=== PATIENT | female | born 1990 | race Hispanic/Latino ===

== ENCOUNTER 2016-12-09 14:04 | Emergency (ER) | payer OTHER, MEDICAID ==
[2016-12-09 14:42] VITALS: RESP 18; TEMP 97.8; O2SAT 100
[2016-12-09 14:43] VITALS: BP 101/62; PULSE 82
--- NOTE | 2016-12-09 16:15 | ED PDOC ---
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 Patient reports that she was lifting a child when she felt the acute onset of a tight, sharp pain in her left lower back. She states that she has never had similar pain in the past, and that she took 200 mg Ibuprofen, but that it did not help relieve her symptoms. She denies any numbness, tingling, bladder incontinence, or bowel incontinence. Past Medical History Reviewed: Historical Data, Nursing Documentation, Vital Signs Vital Signs: Last Vital Signs Temp 97.8 F 12/09/16 14:38 Pulse 82 12/09/16 14:38 Resp 18 12/09/16 14:38 BP 101/62 12/09/16 14:38 Pulse Ox 100 12/09/16 14:38 - Family History Family History: States: Diabetes (second degree relatives) - Home Medications Home Medications: Ambulatory Orders Medication Instructions Recorded Acetaminophen with Codeine 2 tab PO Q4H PRN #22 tab 07/09/14 [Tylenol with Codeine No. 3 300 mg-30 mg] Ibuprofen 600 mg PO Q8H PRN #60 tab 07/09/14 Ibuprofen [Motrin] 1 tab PO Q8 PRN #30 tab 11/01/15 Loratadine [Claritin] 1 tab PO DAILY #30 tab 11/01/15 Oseltamivir Phosphate [Tamiflu] 1 tab PO BID #10 capsule 11/01/15 Ibuprofen [Motrin] 600 mg PO TID PRN #30 tab 07/31/16 Nitrofurantoin Macrocrystals 100 mg PO BID #14 cap 07/31/16 [Macrobid] Cyclobenzaprine [Cyclobenzaprine 10 mg PO Q8H PRN #12 tab 12/09/16 HCl] Ibuprofen [Motrin Tab] 800 mg PO Q6H PRN #20 tab 12/09/16 - Allergies Allergies/Adverse Reactions: Allergies Allergy/AdvReac Type Severity Reaction Status Date / Time No Known Allergies Allergy Verified 07/09/14 11:09 Review of Systems Genitourinary Female: Negative for: Incontinence (denies bladder or bowel incontinence) Musculoskeletal: Positive for: Back Pain (tight, sharp pain in left lower back) Neurological: Negative for: Numbness (denies numbness or tingling) Physical Exam - Reviewed Nursing Documentation Reviewed: Yes Vital Signs Reviewed: Yes - Physical Exam Appears: Positive for: Non-toxic, No Acute Distress Head Exam: Positive for: ATRAUMATIC, NORMOCEPHALIC Skin: Positive for: Normal Color, Warm Eye Exam: Positive for: Normal appearance, EOMI, PERRL Cardiovascular/Chest: Positive for: Regular Rate, Rhythm. Negative for: Murmur Respiratory: Positive for: Normal Breath Sounds. Negative for: Wheezing Back: Positive for: Muscle Spasm, Other ((+) left straight leg raise. No midline tenderness.). Negative for: Vertebral Tenderness, Decreased ROM Neurologic/Psych: Positive for: Alert, Oriented - ECG O2 Sat by Pulse Oximetry: 100 (RA) Pulse Ox Interpretation: Normal Medical Decision Making Medical Decision Making: Impression: Sciatica Plan: * Flexeril 10 mg PO * Ibuprofen 600 mg PO * Urine Pt laughing and taking on phone throughout visit. Scribe Attestation: Documented by Ratna Munoz, acting as a scribe for Stella Fritz PA-C. Provider Scribe Attestation: All medical record entries made by the Scribe were at my direction and personally dictated by me. I have reviewed the chart and agree that the record accurately reflects my personal performance of the history, physical exam, medical decision making, and the department course for this patient. I have also personally directed, reviewed, and agree with the discharge instructions and disposition. Disposition - Clinical Impression Clinical Impression: Back pain - Patient ED Disposition Is Patient to be Admitted: No Counseled Patient/Family Regarding: Diagnosis, Need For Followup, Rx Given - Disposition Referrals: [facility] [Outside] Disposition: Routine/Home Disposition Time: 16:27 Condition: GOOD Prescriptions: Cyclobenzaprine [Cyclobenzaprine HCl] 10 mg PO Q8H PRN #12 tab PRN Reason: Muscle Spasm Ibuprofen [Motrin Tab] 800 mg PO Q6H PRN #20 tab PRN Reason: Pain Instructions: Sciatica (ED)
== END 2016-12-09 16:59 | disposition home or self-care (01) ==
LOC: H.ER 14:04
DX: M54.9 Dorsalgia, unspecified (principal)

== ENCOUNTER 2017-02-08 09:33 | Emergency (ER) | payer MEDICAID, OTHER ==
[2017-02-08 09:54] VITALS: O2SAT 100
[2017-02-08 09:56] VITALS: BMI 25.5
--- NOTE | 2017-02-08 10:26 | ED PDOC ---
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 denies: Fever, Sputum, Neck Pain, Sinus Drainage, Nasal Congestion, Nausea, Vomiting, Diarrhea Ear Symptoms: Bilateral: None Severity: Mild Additional History Per: Patient Additional Complaint(s): c/o sore throat with bodyaches for a few days Past Medical History Reviewed: Historical Data, Nursing Documentation, Vital Signs Vital Signs: Last Vital Signs Temp 98.7 F 02/08/17 09:53 Pulse 76 02/08/17 09:53 Resp 16 02/08/17 09:53 BP 150/80 02/08/17 09:53 Pulse Ox 100 02/08/17 10:27 - Medical History PMH: No Chronic Diseases Denies: Chronic Kidney Disease - Family History Family History: States: Diabetes (second degree relatives) - Living Arrangements Living Arrangements: With Family - Social History Current smoker - smoking cessation education provided: No - Home Medications Home Medications: Ambulatory Orders Medication Instructions Recorded Acetaminophen with Codeine 2 tab PO Q4H PRN #22 tab 07/09/14 [Tylenol with Codeine No. 3 300 mg-30 mg] Ibuprofen 600 mg PO Q8H PRN #60 tab 07/09/14 Ibuprofen [Motrin] 1 tab PO Q8 PRN #30 tab 11/01/15 Loratadine [Claritin] 1 tab PO DAILY #30 tab 11/01/15 Oseltamivir Phosphate [Tamiflu] 1 tab PO BID #10 capsule 11/01/15 Ibuprofen [Motrin] 600 mg PO TID PRN #30 tab 07/31/16 Nitrofurantoin Macrocrystals 100 mg PO BID #14 cap 07/31/16 [Macrobid] Cyclobenzaprine [Cyclobenzaprine 10 mg PO Q8H PRN #12 tab 12/09/16 HCl] Ibuprofen [Motrin Tab] 800 mg PO Q6H PRN #20 tab 12/09/16 Amoxicillin 500 mg PO TID 10 Days 02/08/17 - Allergies Allergies/Adverse Reactions: Allergies Allergy/AdvReac Type Severity Reaction Status Date / Time No Known Allergies Allergy Verified 07/09/14 11:09 Review of Systems ROS Statement: Except As Marked, All Systems Reviewed And Found Negative Constitutional: Negative for: Fever, Chills ENT: Positive for: Throat Pain. Negative for: Nose Congestion Cardiovascular: Negative for: Chest Pain, Palpitations Respiratory: Positive for: Cough. Negative for: Shortness of Breath Gastrointestinal: Negative for: Nausea, Vomiting, Abdominal Pain Genitourinary Female: Negative for: Dysuria Musculoskeletal: Negative for: Neck Pain Skin: Negative for: Rash Neurological: Negative for: Weakness, Numbness Physical Exam - Reviewed Nursing Documentation Reviewed: Yes Vital Signs Reviewed: Yes - Physical Exam Appears: Positive for: Uncomfortable Head Exam: Positive for: ATRAUMATIC, NORMAL INSPECTION, NORMOCEPHALIC Eye Exam: Positive for: Normal appearance, EOMI, PERRL ENT: Positive for: Pharynx Is (mmm), Pharyngeal Erythema (mild). Negative for: Nasal Congestion, Tonsillar Exudate, Tonsillar Swelling Neck: Positive for: Normal, Painless ROM, Supple Cardiovascular/Chest: Positive for: Regular Rate, Rhythm, Chest Non Tender. Negative for: Edema, Gallop, Murmur, Bradycardia, Tachycardia Respiratory: Positive for: Normal Breath Sounds. Negative for: Decreased Breath Sounds, Accessory Muscle Use, Crackles, Rales, Rhonchi, Stridor, Wheezing Gastrointestinal/Abdominal: Positive for: Normal Exam, Bowel Sounds, Soft. Negative for: Tenderness Extremity: Positive for: Normal ROM. Negative for: Tenderness, Pedal Edema Neurologic/Psych: Positive for: Alert, drafter structural II-XII, Oriented. Negative for: Motor/Sensory Deficits - ECG O2 Sat by Pulse Oximetry: 100 Pulse Ox Interpretation: Normal - Progress ED Course And Treament: rapid strep positive Re-evaluation Time: 11:43 Condition: Improved Disposition - Clinical Impression Clinical Impression: Strep pharyngitis - Patient ED Disposition Is Patient to be Admitted: No Counseled Patient/Family Regarding: Studies Performed, Diagnosis, Need For Followup, Rx Given - Disposition Referrals: [facility] [Outside] (2 to 3 days) Disposition: Routine/Home Disposition Time: 11:44 Condition: GOOD Prescriptions: Amoxicillin 500 mg PO TID 10 Days Instructions: Pharyngitis (ED) Forms: [facility] (Indonesian)
[2017-02-08 11:49] VITALS: BP 119/72; PULSE 69; RESP 18; TEMP 98.3
[2017-02-08] MEDS ORDERED: Dexamethasone 4 mg/1 ml IM STA (11:49)
[2017-02-08] MEDS ORDERED: Dexamethasone 4 mg/1 ml ONE (11:52)
== END 2017-02-08 12:49 | disposition home or self-care (01) ==
LOC: H.ER 09:33
DX: J02.0 Streptococcal pharyngitis (principal)

== ENCOUNTER 2018-01-03 12:57 | Emergency (ER) | payer MEDICAID ==
[2018-01-03 12:57] VITALS: BMI 25.5
[2018-01-03 13:12] VITALS: O2SAT 100
[2018-01-03] MEDS ORDERED: Alum-Mag Hydrox-Simethicone Susp (30 mL) PO ONE (13:43)
[2018-01-03] MEDS ORDERED: Famotidine 20mg/50ml 20 MG/50 ML BAG IVPB ONE ×2 (13:45→14:31)
--- NOTE | 2018-01-03 14:10 | ED PDOC ---
HPI: Abdomen Time Seen by Provider: 01/03/18 13:27 Chief Complaint (Nursing): Abdominal Pain History Per: Patient Additional Complaint(s): Pt. states for the past 2-3 days she's had epigastric pain and yesterday after drinking a glass of beer pain became worse. Reports pain starts in epigastric area then radiates down to the rest of her abdomen. Abdominal pain is associated with nausea and non-bloody vomiting. Last BM was yesterday and was normal. Denies chest pain, fever, hematemesis, chest pain, SOB, melena, hematochezia, BRBPR. Past Medical History Reviewed: Historical Data, Nursing Documentation, Vital Signs Vital Signs: Last Vital Signs Temp 98.4 F 01/03/18 23:48 Pulse 82 01/03/18 23:48 Resp 18 01/03/18 23:48 BP 122/64 01/03/18 23:48 Pulse Ox 100 01/03/18 23:48 - Medical History PMH: Denies: Chronic Kidney Disease - Surgical History Surgical History: No Surg Hx - Family History Family History: States: Diabetes (second degree relatives) - Home Medications Home Medications: Ambulatory Orders Medication Instructions Recorded Acetaminophen with Codeine 2 tab PO Q4H PRN #22 tab 07/09/14 [Tylenol with Codeine No. 3 300 mg-30 mg] Ibuprofen 600 mg PO Q8H PRN #60 tab 07/09/14 Ibuprofen [Motrin] 1 tab PO Q8 PRN #30 tab 11/01/15 Loratadine [Claritin] 1 tab PO DAILY #30 tab 11/01/15 Oseltamivir Phosphate [Tamiflu] 1 tab PO BID #10 capsule 11/01/15 Ibuprofen [Motrin] 600 mg PO TID PRN #30 tab 07/31/16 Nitrofurantoin Macrocrystals 100 mg PO BID #14 cap 07/31/16 [Macrobid] Cyclobenzaprine [Cyclobenzaprine 10 mg PO Q8H PRN #12 tab 12/09/16 HCl] Ibuprofen [Motrin Tab] 800 mg PO Q6H PRN #20 tab 12/09/16 Amoxicillin 500 mg PO TID 10 Days tablet 02/08/17 Dicyclomine [Bentyl] 20 mg PO TID PRN #15 tab 01/03/18 Famotidine [Pepcid] 20 mg PO DAILY PRN #10 tab 01/03/18 Ondansetron ODT [Zofran ODT] 4 mg PO TID #10 odt 01/03/18 - Allergies Allergies/Adverse Reactions: Allergies Allergy/AdvReac Type Severity Reaction Status Date / Time No Known Allergies Allergy Verified 07/09/14 11:09 Review of Systems ROS Statement: Except As Marked, All Systems Reviewed And Found Negative Gastrointestinal: Positive for: Nausea, Vomiting, Abdominal Pain Physical Exam - Physical Exam Appears: Positive for: Well, Non-toxic, No Acute Distress Skin: Positive for: Normal Color, Warm. Negative for: Rash Eye Exam: Positive for: Normal appearance ENT: Positive for: Normal ENT Inspection Cardiovascular/Chest: Positive for: Regular Rate, Rhythm. Negative for: Tachycardia Respiratory: Positive for: CNT, Normal Breath Sounds Gastrointestinal/Abdominal: Positive for: Normal Exam, Soft, Tenderness ( minimal epigastric tenderness) Back: Positive for: Normal Inspection. Negative for: L CVA Tenderness, R CVA Tenderness Neurologic/Psych: Positive for: Alert, Oriented. Negative for: Aphasia, Facial Droop - Laboratory Results Result Diagrams: 01/03/18 14:07 01/03/18 14:07 - ECG O2 Sat by Pulse Oximetry: 100 - Progress ED Course And Treament: Labs, abd US, pepcid 20mg IV, maalox 30ml PO, zofran 4mg ODT, IV NS bolus x 1 ordered. 1605 Pt. states no relief in pain but nausea has resolved. Morphine 4mg IV, CT abd/pelvis w/ PO and IV contrast ordered. 1715 On re-evaluation, pt. reports no pain relief. Pending CT. Bentyl PO, toradol 30mg IV ordered. 1800 Pt. reports good relief of abdominal pain. Pending CT report. [address] Pressley and agrees with GENERAL PARTNER consult and pelvic US. Reports no pain at this time. Pelvic US ordered. Disposition - Clinical Impression Clinical Impression: Ovarian mass, Abdominal pain - Patient ED Disposition Is Patient to be Admitted: Transfer of Care (Signed out to Saeid CALDERON pending pelvic US, GENERAL PARTNER consult.) - Disposition Referrals: [facility] [Outside] Christy Ashford MD [Staff Provider] - Disposition: Transfer of Care Disposition Time: 20:00 Condition: IMPROVED Additional Instructions: Thank you for letting us take care of you today. You were treated for abdominal pain, ovarian cyst. The emergency medical care you received today was directed at your acute symptoms. If you were prescribed any medication, please fill it and take as directed. It may take several days for your symptoms to resolve. Return to the Emergency Department if your symptoms worsen, do not improve, or if you have any other problems. Please call one of the physicians/clinics you have been referred to that are listed on the Patient Visit Information form that is included in your discharge packet. Bring any paperwork you were given at discharge with you along with any medications you are taking to your follow up visit. Our treatment cannot replace ongoing medical care by a primary care provider (PCP) outside of the emergency department. Thank you for allowing the [facility] team to be part of your care today. Prescriptions: Dicyclomine [Bentyl] 20 mg PO TID PRN #15 tab PRN Reason: abdominal pain Famotidine [Pepcid] 20 mg PO DAILY PRN #10 tab PRN Reason: Dyspepsia Ondansetron ODT [Zofran ODT] 4 mg PO TID #10 odt Instructions: Acute Abdomen (Belly Pain), Adult (DC), Ovarian Cyst (DC) Forms: [employer] (Occitan), [facility] ED School/Work Excuse
[2018-01-03] MEDS ORDERED: Sodium Chloride 0.9% 1,000 ML IV STA ×3 (14:12→17:25)
[2018-01-03 14:14] LABS: BASO % 0.3 % (0.0-2.0); EOS % 0.3 % (0.0-4.0); HEMOGLOBIN 12.1 g/dL (12.0-16.0); LYMPH # 0.7 K/uL (1.0-4.3); LYMPH % 11.3 % (20.0-40.0); MEAN CELL VOLUME 94.6 fl (81.0-99.0); MEAN CORPUSCULAR HEMOGLOBIN 32.2 pg (27.0-31.0); MEAN PLATELET VOLUME 8.4 fl (7.2-11.7); MONO # 0.3 K/uL (0.0-0.8); MONO % 5.4 % (0.0-10.0); NEUT # 5.3 K/uL (1.8-7.0); NEUT % 82.7 % (50.0-75.0); NRBC % 0.1 % (0.0-0.0); RBC 3.76 Mil/uL (3.80-5.20); RED CELL DISTRIBUTION WIDTH 12.8 % (11.5-14.5); WHITE BLOOD COUNT 6.4 K/uL (4.8-10.8)
[2018-01-03 14:15] LABS: SQUAMOUS EPITHIAL 3 /hpf (0-5); URINE BILIRUBIN NEGATIVE (NEGATIVE); URINE BLOOD MODERATE (NEGATIVE); URINE CLARITY SLIGHTY-CLOUDY (Clear); URINE COLOR YELLOW (YELLOW); URINE GLUCOSE (UA) NEG (Normal); URINE LEUKOCYTE ESTERASE NEG Leu/uL (Negative); URINE PROTEIN 30 mg/dL (NEGATIVE)
[2018-01-03 14:25] LABS: ALB/GLOB RATIO 1.1 (1.0-2.1); ALBUMIN 4.2 g/dL (3.5-5.0); ALT/SGPT 32 U/L (9-52); AST/SGOT 26 U/L (14-36); BLOOD UREA NITROGEN 17 mg/dl (7-17); CALCIUM 9.2 mg/dL (8.4-10.2); GFR AFRICAN-AMERICAN > 60; GFR NON-AFRICAN AMERICAN > 60; LIPASE 21 U/L (23-300)
--- NOTE | 2018-01-03 14:27 | US ---
HISTORY: epigastric pain COMPARISON: None. TECHNIQUE: Sonographic evaluation of the abdomen. FINDINGS: LIVER: Measures 14.3 cm. Normal echogenicity of the liver parenchyma. No mass. No intrahepatic bile duct dilatation. GALLBLADDER: Unremarkable. No gallstones. COMMON BILE DUCT: Measures 3.6 mm. No stones. No dilatation. PANCREAS: Unremarkable as visualized. No mass. No ductal dilatation. RIGHT KIDNEY: Measures 10.9cm. Normal echogenicity. No calculus, mass, or hydronephrosis. LEFT KIDNEY: Measures 10.7cm. Normal echogenicity. No calculus, mass, or hydronephrosis. SPLEEN: Normal in size and contour. No mass. AORTA: No aneurysmal dilatation. IVC: Unremarkable. OTHER FINDINGS: None. IMPRESSION: Unremarkable abdominal sonogram.
[2018-01-03] MEDS ORDERED: Alum-Mag Hydrox-Simethicone Susp (30 mL) ONE (14:31)
[2018-01-03] MEDS ORDERED: Iohexol 240 (50 ml) PO ONE (16:09)
[2018-01-03] MEDS ORDERED: Iohexol 240 (50 ml) ONE (16:16)
[2018-01-03] MEDS ORDERED: Iohexol 300 100 ML IJ ONE (18:28)
[2018-01-03] MEDS ORDERED: Sodium Chloride 0.9% 50 ML IV ONE (18:28)
--- NOTE | 2018-01-03 22:39 | ED PDOC ---
- Laboratory Results Result Diagrams: 01/03/18 14:07 01/03/18 14:07 - ECG O2 Sat by Pulse Oximetry: 100 Medical Decision Making Medical Decision Making: Case endorsed to me from LEANDRO Robins at 1999, pending pelvic US, and SERVICES ACCOUNT MANAGER consult. Patient seen and evaluated by me, LEANDRO Robins and Dr. Pressley at the bedside. We agree with plan for pelvic US and SERVICES ACCOUNT MANAGER consult. During Dr. Pressley exam, patient reported improvement of pain. On exam, patient laying in bed comfortably, her abdomen is soft, non-tender with no palpable mass. CT A/P : FINDINGS: Lower thorax: No pulmonary airspace consolidation or pleural fluid collection in the imaged portion of the thorax. ABDOMEN: Liver: No acute findings. Gallbladder and bile ducts: The gallbladder is moderately distended as was also seen on the comparison ultrasound. No radiopaque gallstones or pericholecystic inflammatory changes. No biliary ductal dilation. Pancreas: No acute findings. Spleen: No acute findings. Adrenals: No acute findings. Kidneys and ureters: Mild dilation of both renal collecting systems and proximal ureters, right greater than left. No evident urinary tract calculi. No perinephric fat stranding. The kidneys enhance promptly and symmetrically. Stomach and bowel: No bowel obstruction or other evident acute abnormality of the stomach, small bowel, or colon. Appendix: Normal appendix. PELVIS: Bladder: No acute findings. Reproductive: 16 x 9 x 19 cm smoothly marginated, homogeneous, fluid attenuation cystic lesion in the lower abdomen and pelvis, extending from just above the bladder dome to 5.5 cm superior to the level of the umbilicus. This lesion is presumably the structure thought to be a distended urinary bladder on the comparison ultrasound. The lesion appears to arise from the left ovary. There is no fluid or fat stranding surrounding the cystic lesion or the left ovary. 4.4 x 2.8 x 4.3 cm smoothly marginated, fluid attenuation right ovarian lesion. No evident abnormality of the uterus. ABDOMEN and PELVIS: Intraperitoneal space: No free intraperitoneal fluid or air. Bones/joints: No acute findings. Soft tissues: Tiny, fat-containing umbilical hernia with no associated complications. Vasculature: No acute findings. The abdominal aorta is normal in caliber. Lymph nodes: No enlarged abdominal or pelvic lymph nodes by CT criteria. IMPRESSION: 1. 16 x 9 x 19 cm abdominopelvic cystic lesion as described above, likely arising from the left ovary. Differential diagnosis favors a benign entity (e.g., serous cystadenoma). No findings suggestive of associated ovarian torsion. If there is clinical concern for ovarian torsion, further evaluation could be obtained with a pelvis ultrasound with Doppler evaluation of the ovaries. Otherwise, recommend Gynecology consult. 2. A 4.4 cm fluid attenuation right ovarian lesion is most consistent with a simple physiologic cyst or follicle. No findings suggestive of associated ovarian torsion. 3. Mild dilation of both renal collecting systems is likely secondary to extrinsic compression of both ureters by the above described 19 cm cystic lesion. 4. The gallbladder is moderately distended as was also seen on the comparison ultrasound but there are no radiopaque gallstones or pericholecystic inflammatory changes to suggest acute cholecystitis. Dictated and Authenticated by: Graciela Yates MD 01/03/2018 8:09 PM Eastern Time ([place] & [place]) 2030 Case d/w Dr. Ashford, will evaluate the patient in the ER. 2129 Patient seen and evaluated by Dr. Ashford, who also reviewed the CT, she recommends outpatient follow up as she is stable and has no acute surgical abdomen. She states that the patient should seek consultation with installers mechanical oncologist as an outpatient. Otherwise if the pelvic US shows no torsion, she feels comfortable with the patient being discharged with outpatient follow up in her office. Pelvic US : FINDINGS: Uterus/cervix: Unremarkable. Normal endometrial stripe thickness 5.6 mm. No myometrial mass. 7.6 cm x 5.5 cm x 4.3 cm Right adnexa There is a large cystic mass arising in the RIGHT adnexa measuring 17.9 cm x 7.7 cm 14.3 cm. This finding has smooth borders, no internal echoes, and through transmission. The wall is noted to be thin. This finding correlates well with findings noted on CT examination. The blood flow to the is seen in the periphery of this lesion. This finding does not show a clear connection to the RIGHT ovary or the uterus. This finding may represent a paraovarian cyst. RIGHT ovary measures 3.9 cm x 3.5 cm x 3.6 cm. There is a RIGHT ovarian complex cyst. This cyst measures 4 cm x 3.3 cm x 2.8 cm. This finding is posterior to the uterus and was seen on CT examination Left ovary: Unremarkable follicular cysts are seen measures 2.7 cm x 3 cm x 1.9 cm. The LEFT ovary measures 2.7 cm x 3 cm x 1.9 cm Free fluid: No free fluid. IMPRESSION: 1. Large cystic mass anterior RIGHT adnexa with peripheral blood flow. Rule out paraovarian cyst, versus ovarian cystadenoma 2. Smaller Benign cysts RIGHT ovary. 3. Negative uterus and endometrium. 4. Negative LEFT ovary Dictated and Authenticated by: Piero Alicia MD 01/03/2018 11:05 PM Eastern Time ([place] & [place]) 2300 On re-evaluation, patient reports improvement of symptoms. On exam, patient remains AAOx3, in no acute distress. Abdomen soft, non-tender. CT and US results d/w the patient in great detail. Advised that she needs to follow up abnormal results with SERVICES ACCOUNT MANAGER without fail. Patient instructed to follow-up with Dr. Ashford in 1-2 days without fail. Advised to take medication as prescribed. Return to the emergency room at any time for any new or worsening symptoms. Patient states she fully agrees with and understands discharge instructions. States that she agrees with the plan and disposition. Verbalized and repeated discharge instructions and plan. I have given the patient opportunity to ask any additional questions. Disposition Counseled Patient/Family Regarding: Studies Performed, Diagnosis, Need For Followup - Clinical Impression Clinical Impression: Ovarian mass, Abdominal pain - POA Present On Arrival: None - Disposition Referrals: [facility] [Outside] Christy Ashford MD [Staff Provider] - Disposition: Routine/Home Disposition Time: 23:00 Condition: STABLE Additional Instructions: Thank you for letting us take care of you today. You were treated for abdominal pain, ovarian cyst. The emergency medical care you received today was directed at your acute symptoms. If you were prescribed any medication, please fill it and take as directed. It may take several days for your symptoms to resolve. Return to the Emergency Department if your symptoms worsen, do not improve, or if you have any other problems. Please call one of the physicians/clinics you have been referred to that are listed on the Patient Visit Information form that is included in your discharge packet. Bring any paperwork you were given at discharge with you along with any medications you are taking to your follow up visit. Our treatment cannot replace ongoing medical care by a primary care provider (PCP) outside of the emergency department. Thank you for allowing the [facility] team to be part of your care today. 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
[2018-01-03 23:51] VITALS: BP 122/64; PULSE 82; RESP 18; TEMP 98.4
--- NOTE | 2018-01-04 09:30 | CT ---
PROCEDURE: CT Abdomen and Pelvis with contrast HISTORY: epigastric abdominal pain COMPARISON: Abdomen ultrasound examination 01/03/2018. Subsequent transabdominal pelvic ultrasound 01/03/2018. TECHNIQUE: Following oral and intravenous contrast administration, a CT examination of the abdomen and pelvis performed from the domes of the diaphragms to the symphysis pubis with reformatted datasets provided not only axial but also sagittal and coronal series. Contrast dose: Omnipaque 300, 95 cc Radiation dose: Total exam DLP = 644.94 mGy-cm. This CT exam was performed using one or more of the following dose reduction techniques: Automated exposure control, adjustment of the mA and/or kV according to patient size, and/or use of iterative reconstruction technique. FINDINGS: LOWER THORAX: Unremarkable. LIVER: Unremarkable. No gross lesion or ductal dilatation. GALLBLADDER AND BILE DUCTS: Gallbladder is distended with no mural thickening, pericholecystic fluid or cholelithiasis related. No dilatation of the biliary tree, both intra and extrahepatic. PANCREAS: Unremarkable. No gross lesion or ductal dilatation. SPLEEN: Spleen is mildly enlarged up to 13.0 cm with a without focal mass appreciable. ADRENALS: Unremarkable. No mass. KIDNEYS AND URETERS: There is mild dilatation of the right pelvocaliceal system in the right ureter with a very minimally prominent left extrarenal pelvis evident. No perinephric fluid collection or reactive change. No cystic or solid renal parenchymal mass. VASCULATURE: Unremarkable. No aortic aneurysm. BOWEL: The stomach is unremarkable, mildly distend with retained oral contrast material. There is no bowel obstruction appreciated throughout. Loops in the lower pelvis are discs placed peripherally by a cystic lesion described below. APPENDIX: Normal appendix. PERITONEUM: Unremarkable. No free fluid. No free air. LYMPH NODES: Unremarkable. No enlarged lymph nodes. BLADDER: Nonfocal though slightly impressed at the bladder's dome by a large right abdominopelvic cystic lesion. REPRODUCTIVE: There is a large abdominopelvic cystic lesion at the at the right lower quadrant extending to the right hemipelvis and extending toward medial left tony abdomen and pelvis somewhat as well. It measures 16.0 x 9.0 x 19.0 cm (transverse by anteroposterior by superoinferior dimensions) and is well-circumscribed with a thin peripheral margin. Its superior margin is approximately 6 cm above the umbilicus terminating at the urinary bladder dome. No reactive changes are seen in the periphery and no septation or internal nodularity is identified. Measures fluid attenuation a likely is arch mass effect on the distal right ureter causing limited right hydroureteronephrosis as described in renal section above. The displaces small large-bowel peripherally and abuts the inferior abdominal aorta and right iliac arterial system without causing definite stenosis. The lesion appears to abut the medial margins of the left ovary and therefore may represent a benign cystic neoplasm from the left over such is a benign cystadenoma given its simple appearance though it is quite large. Still, a peritoneal or parovarian cyst is a possibility. The ovary is mildly enlarged to a maximum diameter 4.4 cm, apparently by a benign complex cystic lesion seen in subsequent pelvic ultrasound 01/03/2018. Please see separate report. BONES: No acute fracture. OTHER FINDINGS: None. IMPRESSION: 1. An 18.0 cm simple appearing cystic mass potentially related to the left ovary is identified in the lower abdomen and upper mid pelvis, right side significantly greater than left, suspicious for potential benign left adnexal lesion though paraovarian or peritoneal cyst are possible as well. Likely related mild right hydroureteronephrosis results. Gynecological consultation advised. 2. Mildly enlarged right ovary apparently secondary to complex ovarian cyst. Please separate pelvic ultrasound report also performed 01/03/2018. 3. Persisting gallbladder distension though no other findings are appreciated to indicate acute cholecystitis.
--- NOTE | 2018-01-04 10:07 | CP.PCM.CON ---
History of Present Illness - History of Present Illness History of Present Illness: Pt is a with a history of midepigastric discomfort/ nausea and incidental finding of an 18cm pelvic mass. Patient reports she had some pelvic cramping in the last 3 months, was seen by a dynamicist and had an U/S done at an outside institution which was determined to be normal as per patient. Otherwise predominantly pt has been having on/off midpeigastric discomfort/nausea and acid reflux. Patient has been on depo for control, was giving her irregular periods and so recently stopped talking that for contraception. So she has been getting irregular periods, LMP started 01/03. Otherwise no ROA, no SOB, no CP, no LOC, no severe abdominal pain, occasional vomiting but none today. Review of Systems - Cardiovascular Cardiovascular: As Per HPI - Respiratory Respiratory: As Per HPI - Gastrointestinal Gastrointestinal: Heartburn Additional comments: mid epigastric discomfort Past Patient History - Infectious Disease Hx of Infectious Diseases: None - Past Social History Smoking Status: Light Smoker < 10 Cigarettes Daily - CARDIAC Hx Cardiac Disorders: No - PULMONARY Hx Respiratory Disorders: No - NEUROLOGICAL Hx Neurological Disorder: No - HEENT Hx HEENT Problems: No - RENAL Hx Chronic Kidney Disease: No - ENDOCRINE/METABOLIC Hx Endocrine Disorders: No - HEMATOLOGICAL/ONCOLOGICAL Hx Blood Disorders: No - INTEGUMENTARY Hx Dermatological Problems: No - MUSCULOSKELETAL/RHEUMATOLOGICAL Hx Musculoskeletal Disorders: No - GASTROINTESTINAL Hx Gastrointestinal Disorders: No - GENITOURINARY/GYNECOLOGICAL Hx Genitourinary Disorders: No - PSYCHIATRIC Hx Psychophysiologic Disorder: No Hx Substance Use: No - SURGICAL HISTORY Hx Surgeries: No - ANESTHESIA Hx Anesthesia: No Meds Home Medications: Home Medication List Medication Instructions Recorded Confirmed Type Dicyclomine [Bentyl] 20 mg PO TID PRN #15 tab 01/03/18 Rx Famotidine [Pepcid] 20 mg PO DAILY PRN #10 tab 01/03/18 Rx Ondansetron ODT [Zofran ODT] 4 mg PO TID #10 odt 01/03/18 Rx Allergies/Adverse Reactions: Allergies Allergy/AdvReac Type Severity Reaction Status Date / Time No Known Allergies Allergy Verified 07/09/14 11:09 Physical Exam - Constitutional Appears: Well, Non-toxic - Head Exam Head Exam: ATRAUMATIC - Eye Exam Eye Exam: Normal appearance Pupil Exam: NORMAL ACCOMODATION - Respiratory Exam Respiratory Exam: NORMAL BREATHING PATTERN - Cardiovascular Exam Cardiovascular Exam: REGULAR RHYTHM - GI/Abdominal Exam GI & Abdominal Exam: Normal Bowel Sounds, Soft Additional comments: non-tender, no rebound, no gaurding, +BS - Extremities Exam Extremities exam: Positive for: normal inspection Results - Vital Signs Recent Vital Signs: Last Vital Signs Temp 98.4 F 01/03/18 23:48 Pulse 82 01/03/18 23:48 Resp 18 01/03/18 23:48 BP 122/64 01/03/18 23:48 Pulse Ox 100 01/03/18 23:48 - Labs Result Diagrams: 01/03/18 14:07 01/03/18 14:07 Labs: Laboratory Results - last 24 hr 01/03/18 01/03/18 01/03/18 14:07 14:07 14:07 WBC 6.4 RBC 3.76 L Hgb 12.1 Hct 35.5 MCV 94.6 MCH 32.2 H MCHC 34.0 RDW 12.8 Plt Count 223 MPV 8.4 Neut % (Auto) 82.7 H Lymph % (Auto) 11.3 L Thur[place] % (Auto) 5.4 Eos % (Auto) 0.3 Baso % (Auto) 0.3 Neut # (Auto) 5.3 Lymph # (Auto) 0.7 L Thur[place] # (Auto) 0.3 Eos # (Auto) 0.0 Baso # (Auto) 0.0 Sodium 141 Potassium 3.7 Chloride 104 Carbon Dioxide 26 Anion Gap 15 BUN 17 Creatinine 0.5 L Est GFR ( Amer) > 60 Est GFR (Non-Af Amer) > 60 Random Glucose 80 Calcium 9.2 Total Bilirubin 0.7 AST 26 ALT 32 Alkaline Phosphatase 62 Total Protein 7.8 Albumin 4.2 Globulin 3.6 Albumin/Globulin Ratio 1.1 Lipase 21 L Urine Color Yellow Urine Clarity Slighty-cloudy Urine pH 5.0 Ur Specific [place] 1.035 H Urine Protein 30 Urine Glucose (UA) Neg Urine Ketones 20 Urine Blood Moderate Urine Nitrate Negative Urine Bilirubin Negative Urine Urobilinogen 4.0 H Ur Leukocyte Esterase Neg Urine RBC (Auto) 2 Urine Microscopic WBC 2 Ur Squamous Epith Cells 3 Alcohol, Quantitative < 10 Assessment & Plan - Assessment and Plan (Free Text) Plan: A/P 27 yo with a18cm pelvic mass found on CT scan 1. patient presented for evaluation for mid epigastric discomfort and pelvic mass was found incidentally. Pt comfortable on exam, no abdominal pain. Not presenting with an acute abdomen, surgery not warranted as an emergency 2. Reading on CT scan is the mass looks to be cystic in nature and coming off the ovary. Most likely benign in nature. Some hydronephrosis observed, but otherwise no severe abnormal pathology. Discussed with the patient since she is presenting to be stable for discharge, will see her in the office and refer to dynamicist oncology for further evaluation and management 3. Consult appreciated
--- NOTE | 2018-01-04 13:26 | US ---
HISTORY: Ovarian mass. LMP 12/28/2017 COMPARISON: None available. TECHNIQUE: Transabdominal only. Real-time technique with 2D, duplex and color Doppler FINDINGS: UTERUS: Measures 4.3 x 5.6 x 7.6 cm. Normal in size and appearance. No fibroid or other mass lesion seen. ENDOMETRIUM: Measures 5.6 mm in diameter. No ultrasound findings to suggest gestational sac, fluid, debris, mass or polyp or other pathologic process within the endometrium. CERVIX: No cervical abnormality identified. RIGHT OVARY: Measures 3.6 x 3.6 x 3.9 cm. No solid mass. Normal flow. Simple cyst 3.3 x 2.9 x 4.1 LEFT OVARY: Measures 3 x 1.9 x 2 point cm. No solid mass. Normal flow. Multiple subcentimeter follicles. FREE FLUID: No significant free fluid noted. OTHER FINDINGS: Cystic pelvic mass anterior to the uterus 7.8 x 14.3 x 18 cm. IMPRESSION: Cystic pelvic mass anterior to the uterus likely originating from the right adnexa. Additional benign and/or incidental findings described above. Concordant results (preliminary interpretation) provided by [facility]. Procedure Completed: 22:18 Preliminary ([facility]) Report: Dictated and Authenticated: 23:05 Final Interpretation: 13:25 January 04, 2018.
== END 2018-01-03 23:51 | disposition home or self-care (01) ==
LOC: H.ER 12:57
DX: R10.13 Epigastric pain (principal); N83.202 Unspecified ovarian cyst, left side
CPT/HCPCS: 74177; 76700; 76856; 80053; 80320; 81003; 81025; 83690; 85025; 96361; 96365; 96375; 99285; J1885; J2270; J7030; Q9966; Q9967

== ENCOUNTER 2018-03-23 19:34 | Emergency (ER) | payer MEDICAID ==
[2018-03-23 19:34] VITALS: BMI 25.5
[2018-03-23 19:42] VITALS: BP 130/77; PULSE 88; RESP 18; TEMP 98.2; O2SAT 99
--- NOTE | 2018-03-23 19:57 | ED PDOC ---
HPI: Female Pain Time Seen by Provider: 03/23/18 19:44 Chief Complaint (Nursing): Female Genitourinary Chief Complaint (Provider): Vaginal bleeding in History Per: Patient History/Exam Limitations: no limitations Onset/Duration Of Symptoms: Hrs Additional Complaint(s): 27 yo presents for evaluation of vaginal bleeding in . PT states that she took 2 tests at home which were positive. Pt states that after taking the second she went to the restroom and had vaginal bleeding. Pt denies abdominal pain. Pt unsure of last menses. Pt thinks she missed one. Past Medical History Reviewed: Historical Data, Nursing Documentation, Vital Signs Vital Signs: Last Vital Signs Temp 98.2 F 03/23/18 19:40 Pulse 88 03/23/18 19:40 Resp 18 03/23/18 19:40 BP 130/77 03/23/18 19:40 Pulse Ox 99 03/23/18 19:40 - Medical History PMH: No Chronic Diseases Denies: Chronic Kidney Disease - Surgical History Surgical History: No Surg Hx - Family History Family History: States: Diabetes (second degree relatives) - Living Arrangements Living Arrangements: With Family - Social History Current smoker - smoking cessation education provided: No - Home Medications Home Medications: Ambulatory Orders Medication Instructions Recorded Acetaminophen with Codeine 2 tab PO Q4H PRN #22 tab 07/09/14 [Tylenol with Codeine No. 3 300 mg-30 mg] Ibuprofen 600 mg PO Q8H PRN #60 tab 07/09/14 Ibuprofen [Motrin] 1 tab PO Q8 PRN #30 tab 11/01/15 Loratadine [Claritin] 1 tab PO DAILY #30 tab 11/01/15 Oseltamivir Phosphate [Tamiflu] 1 tab PO BID #10 capsule 11/01/15 Ibuprofen [Motrin] 600 mg PO TID PRN #30 tab 07/31/16 Nitrofurantoin Macrocrystals 100 mg PO BID #14 cap 07/31/16 [Macrobid] Cyclobenzaprine [Cyclobenzaprine 10 mg PO Q8H PRN #12 tab 12/09/16 HCl] Ibuprofen [Motrin Tab] 800 mg PO Q6H PRN #20 tab 12/09/16 Amoxicillin 500 mg PO TID 10 Days tablet 02/08/17 Dicyclomine [Bentyl] 20 mg PO TID PRN #15 tab 01/03/18 Famotidine [Pepcid] 20 mg PO DAILY PRN #10 tab 01/03/18 Ondansetron ODT [Zofran ODT] 4 mg PO TID #10 odt 01/03/18 - Allergies Allergies/Adverse Reactions: Allergies Allergy/AdvReac Type Severity Reaction Status Date / Time No Known Allergies Allergy Verified 03/23/18 19:39 Review of Systems ROS Statement: Except As Marked, All Systems Reviewed And Found Negative Constitutional: Negative for: Fever, Chills Genitourinary Female: Positive for: Vaginal Bleeding Physical Exam - Reviewed Nursing Documentation Reviewed: Yes Vital Signs Reviewed: Yes - Physical Exam Appears: Positive for: Well, Non-toxic, No Acute Distress Head Exam: Positive for: ATRAUMATIC, NORMAL INSPECTION, NORMOCEPHALIC Skin: Positive for: Normal Color, Warm, DRY Eye Exam: Positive for: Normal appearance ENT: Positive for: Normal ENT Inspection Neck: Positive for: Normal, Painless ROM Cardiovascular/Chest: Positive for: Regular Rate, Rhythm Respiratory: Positive for: CNT, Normal Breath Sounds Gastrointestinal/Abdominal: Positive for: Normal Exam, Soft. Negative for: Tenderness Back: Positive for: Normal Inspection Extremity: Positive for: Normal ROM Neurologic/Psych: Positive for: Alert, Oriented - ECG O2 Sat by Pulse Oximetry: 99 Medical Decision Making Medical Decision Making: Endorsed to [facility] at 2000. Disposition - Clinical Impression Clinical Impression: Vaginal bleeding during - Patient ED Disposition Is Patient to be Admitted: Transfer of Care - Disposition Disposition: Transfer of Care Disposition Time: 19:57 Condition: STABLE Instructions: Bleeding With
[2018-03-23 21:17] LABS: BASO % 0.4 % (0.0-2.0); EOS # 0.1 K/uL (0.0-0.7); EOS % 0.8 % (0.0-4.0); HEMOGLOBIN 11.7 g/dL (12.0-16.0); LYMPH # 2.7 K/uL (1.0-4.3); LYMPH % 32.4 % (20.0-40.0); MEAN CELL VOLUME 93.9 fl (81.0-99.0); MEAN CORPUSCULAR HEMOGLOBIN 32.1 pg (27.0-31.0); MEAN CORPUSCULAR HGB CONC 34.2 g/dL (33.0-37.0); MEAN PLATELET VOLUME 8.5 fl (7.2-11.7); MONO # 0.6 K/uL (0.0-0.8); MONO % 7.8 % (0.0-10.0); NEUT # 4.9 K/uL (1.8-7.0); NEUT % 58.6 % (50.0-75.0); NRBC % 0.1 % (0.0-0.0); RBC 3.64 Mil/uL (3.80-5.20); RED CELL DISTRIBUTION WIDTH 12.7 % (11.5-14.5); WHITE BLOOD COUNT 8.4 K/uL (4.8-10.8)
[2018-03-23 21:24] LABS: ALB/GLOB RATIO 1.4 (1.0-2.1); ALBUMIN 4.3 g/dL (3.5-5.0); ALT/SGPT 25 U/L (9-52); AST/SGOT 23 U/L (14-36); BLOOD UREA NITROGEN 13 mg/dl (7-17); CALCIUM 9.9 mg/dL (8.4-10.2); GFR NON-AFRICAN AMERICAN > 60
--- NOTE | 2018-03-23 21:42 | ED PDOC ---
- Laboratory Results Result Diagrams: 03/23/18 21:09 03/23/18 21:09 - ECG O2 Sat by Pulse Oximetry: 99 - Progress ED Course And Treament: Case endorsed to engineering technical writer from [employer] pending labs, u/s EXAM: US , Transvaginal CLINICAL HISTORY: The patient is a 27 years female; Signs and symptoms; Lmp or gestational age ( in weeks): Unknown; Antepartum complications; Other: Spotting; ; Prior surgery; Surgery date : 1-6 months; Surgery type: S/P large cystic structure removed in 01/27; Additional info: Vaginal bleeding in 03/23/2018 8:04 PM TECHNIQUE: Real-time transvaginal obstetrical ultrasound of the maternal pelvis and a first trimester with image documentation. Transvaginal imaging was used for better evaluation of the fetus and adnexa. COMPARISON: No relevant prior studies available. FINDINGS: Gestation: Single live intrauterine with fetus corresponding to gestational age of 5 weeks and 6 days. Obtained heart rate is 105 bpm. Yolk sac noted. Uterus/cervix: Cervix is closed and measures 4 cm. No myometrial mass. Ovaries: Right ovary measures 3.1 cm. 1.4 x 1.6 cm complex cystic structure in the right ovary. Left ovary measures 3.6 cm. 1.8 cm complex cystic structure, likely corpus luteum. Free fluid: No free fluid. IMPRESSION: Single live intrauterine with fetus corresponding to gestational age of 5 weeks and 6 days. Obtained heart rate is 105 bpm. Patient educated on findings, discharged with instructions to follow up Psychometrist within 2-3 days Return precautions given Patient demonstrates full understanding of discharge instructions Patient requires no further intervention in the ED and is stable for discharge at this time Disposition - Clinical Impression Clinical Impression: Vaginal bleeding during - POA Present On Arrival: None - Disposition Disposition: Routine/Home Disposition Time: 22:43 Condition: STABLE Instructions: Bleeding With Forms: [employer] (Persian)
--- NOTE | 2018-03-24 13:42 | US ---
Date of service: 03/23/2018 PROCEDURE: OB Pelvic Ultrasound HISTORY: Vaginal bleeding in COMPARISON: None available. TECHNIQUE: Transvaginal pelvic ultrasound was performed. FINDINGS: UTERUS: Single Live intrauterine gestation. CRL measures 0.3 cm equivalent to 5 weeks and 5 days of gestational age. Gestational sac diameter measures 1.4 cm equivalent to 5 weeks and 5 days of gestational age. age (Ultrasound estimated): 5 weeks and 6 days Date of delivery (Ultrasound estimated) : 11/17/2018 Heart rate: 105 bpm. Irma-gestational hemorrhage: None. Measures 7.5 x 4.4 x 4.8 cm. Normal in size and appearance. No fibroid or other mass lesion seen. CERVIX: Long and closed. No cervical abnormality seen. RIGHT OVARY: Measures 3.1 x 1.2 x 3.1 cm. No mass. Normal flow. There is a 1.4 x 1.0 x 1.6 cm complicated cyst. LEFT OVARY: Measures 3.6 x 2.0 x 3.2 cm. No mass. Normal flow. There is a 1.8 x 1.2 x 1.4 cm corpus luteum cyst. FREE FLUID: None. OTHER FINDINGS: None. IMPRESSION: Single live intrauterine gestation with mean gestational age of 5 weeks and 6 days. The estimated date of delivery by ultrasound is 11/17/2018. A preliminary report was provided by [employer].
== END 2018-03-23 22:55 | disposition home or self-care (01) ==
LOC: H.ER 19:34
DX: O20.9 Hemorrhage in early pregnancy, unspecified (principal); Z3A.01 Less than 8 weeks gestation of pregnancy

== ENCOUNTER 2018-03-31 08:07 | Emergency (ER) | payer MEDICAID ==
[2018-03-31 08:17] VITALS: BMI 29.9
[2018-03-31] MEDS ORDERED: Sodium Chloride 0.9% 1,000 ML IV STA (08:56)
[2018-03-31 09:36] LABS: ALB/GLOB RATIO 1.2 (1.0-2.1); ALT/SGPT 24 U/L (9-52); AST/SGOT 16 U/L (14-36); BLOOD UREA NITROGEN 7 mg/dl (7-17); CALCIUM 9.6 mg/dL (8.4-10.2); GFR NON-AFRICAN AMERICAN > 60
[2018-03-31 09:39] LABS: BASO % 0.5 % (0.0-2.0); EOS % 0.5 % (0.0-4.0); HEMOGLOBIN 10.8 g/dL (12.0-16.0); LYMPH # 1.9 K/uL (1.0-4.3); LYMPH % 30.4 % (20.0-40.0); MEAN CELL VOLUME 92.8 fl (81.0-99.0); MEAN CORPUSCULAR HEMOGLOBIN 32.3 pg (27.0-31.0); MEAN CORPUSCULAR HGB CONC 34.7 g/dL (33.0-37.0); MEAN PLATELET VOLUME 8.4 fl (7.2-11.7); MONO # 0.7 K/uL (0.0-0.8); MONO % 10.8 % (0.0-10.0); NEUT # 3.6 K/uL (1.8-7.0); NEUT % 57.8 % (50.0-75.0); NRBC % 0.3 % (0.0-0.0); RBC 3.36 Mil/uL (3.80-5.20); RED CELL DISTRIBUTION WIDTH 12.5 % (11.5-14.5); WHITE BLOOD COUNT 6.1 K/uL (4.8-10.8)
--- NOTE | 2018-03-31 11:01 | US ---
Date of service: 03/31/2018 PROCEDURE: OB Pelvic Ultrasound HISTORY: Lower abdominal pain COMPARISON: None available. FINDINGS: UTERUS: Single Live intrauterine gestation. CRL measures 0.84 cm equivalent to 6 weeks and 5 days gestatioin Gestational sac diameter measures 2.09 cm equivalent to 6 weeks and 4 days gestation age (Ultrasound estimated): 6 weeks and 5 days Date of delivery (Ultrasound estimated) : 11/19/2018 Heart rate: 136 bpm. Irma-gestational hemorrhage: None. Uterus measures 8.1 x 7.6 x 4.8 cm. No mass CERVIX: Long and closed. No cervical abnormality seen. RIGHT OVARY: Measures 3.4 x 3.7 x 1.4 cm. No mass. Normal flow. There is a 1.7 x 1.3 x 1.0 cm septated cyst. LEFT OVARY: Measures 3.1 x 3.1 x 2.3 cm. No mass. Normal flow. There is a 1.9 x 1.9 x 1.7 cm complicated cyst and 1.5 x 1.9 x 1.2 cm complicated cyst. FREE FLUID: None. OTHER FINDINGS: None. IMPRESSION: Single live intrauterine gestational sac with mean gestational age of 6 weeks and 5 days. The estimated date of delivery by ultrasound is 11/19/2018.
[2018-03-31 13:55] VITALS: BP 102/61; PULSE 71; RESP 17; TEMP 98.4; O2SAT 99
--- NOTE | 2018-03-31 15:43 | ED PDOC ---
HPI: Abdomen Time Seen by Provider: 03/31/18 08:35 Chief Complaint (Nursing): Abdominal Pain Chief Complaint (Provider): Abdominal Pain History Per: Patient History/Exam Limitations: no limitations Onset/Duration Of Symptoms: Days Current Symptoms Are (Timing): Still Present Additional Complaint(s): 27 y/o female who is and approximately 8 weeks presents to the ED for evaluation of lower abdominal pain, ongoing for a couple of days. Patient reports lower abdominal pain is associated with lower back pain. Patient additionally reports of having an US performed for recently which resulted normally. Denies vaginal bleeding, fever and urinary problems. 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 PMD: Kalpesh Mclaughlin : 2 Para: 1 Past Medical History Reviewed: Historical Data, Nursing Documentation, Vital Signs Vital Signs: Last Vital Signs Temp 98.4 F 03/31/18 13:54 Pulse 71 03/31/18 13:54 Resp 17 03/31/18 13:54 BP 102/61 03/31/18 13:54 Pulse Ox 99 03/31/18 15:56 - Medical History PMH: No Chronic Diseases Denies: Chronic Kidney Disease - Surgical History Surgical History: No Surg Hx - Family History Family History: States: Diabetes (second degree relatives) - Social History Current smoker - smoking cessation education provided: No Alcohol: None - Home Medications Home Medications: Ambulatory Orders Medication Instructions Recorded Acetaminophen with Codeine 2 tab PO Q4H PRN #22 tab 07/09/14 [Tylenol with Codeine No. 3 300 mg-30 mg] Ibuprofen 600 mg PO Q8H PRN #60 tab 07/09/14 Ibuprofen [Motrin] 1 tab PO Q8 PRN #30 tab 11/01/15 Loratadine [Claritin] 1 tab PO DAILY #30 tab 11/01/15 Oseltamivir Phosphate [Tamiflu] 1 tab PO BID #10 capsule 11/01/15 Ibuprofen [Motrin] 600 mg PO TID PRN #30 tab 07/31/16 Nitrofurantoin Macrocrystals 100 mg PO BID #14 cap 07/31/16 [Macrobid] Cyclobenzaprine [Cyclobenzaprine 10 mg PO Q8H PRN #12 tab 12/09/16 HCl] Ibuprofen [Motrin Tab] 800 mg PO Q6H PRN #20 tab 05/30/17 Amoxicillin 500 mg PO TID 10 Days tablet 02/08/17 Dicyclomine [Bentyl] 20 mg PO TID PRN #15 tab 01/03/18 Famotidine [Pepcid] 20 mg PO DAILY PRN #10 tab 01/03/18 Ondansetron ODT [Zofran ODT] 4 mg PO TID #10 odt 01/03/18 - Allergies Allergies/Adverse Reactions: Allergies Allergy/AdvReac Type Severity Reaction Status Date / Time No Known Allergies Allergy Verified 03/23/18 19:39 Review of Systems ROS Statement: Except As Marked, All Systems Reviewed And Found Negative Constitutional: Negative for: Fever Gastrointestinal: Positive for: Abdominal Pain (lower) Genitourinary Female: Negative for: Dysuria, Frequency, Hematuria, Vaginal Bleeding Physical Exam - Reviewed Nursing Documentation Reviewed: Yes Vital Signs Reviewed: Yes - Physical Exam Appears: Positive for: No Acute Distress Head Exam: Positive for: ATRAUMATIC, NORMOCEPHALIC Skin: Positive for: Normal Color, Warm, Dry Eye Exam: Positive for: Normal appearance, EOMI, PERRL Neck: Positive for: Normal, Painless ROM Cardiovascular/Chest: Positive for: Regular Rate, Rhythm. Negative for: Murmur Respiratory: Positive for: Normal Breath Sounds. Negative for: Respiratory Distress Gastrointestinal/Abdominal: Positive for: Tenderness (Mild suprapuic tenderness) Extremity: Positive for: Normal ROM. Negative for: Deformity Neurologic/Psych: Positive for: Alert, Oriented. Negative for: Motor/Sensory Deficits - Laboratory Results Result Diagrams: 03/31/18 09:14 03/31/18 09:14 - ECG O2 Sat by Pulse Oximetry: 99 (RA) Pulse Ox Interpretation: Normal Medical Decision Making Medical Decision Making: Time: 913 Impression: Abdominal pain and Differentials include threatened miscarriage and demise Plan: -- Serum -- CMP -- ED Urine -- ED Urine Dipstick -- CBC with differentials -- Sodium Chloride IV 1000 mls/hr -- Zofran Inj 4 mg IVP -- IV Insertion -- US OB Transvaginal Time: 1059 US RESULTS FINDINGS: UTERUS: Single Live intrauterine gestation. CRL measures 0.84 cm equivalent to 6 weeks and 5 days gestatioin Gestational sac diameter measures 2.09 cm equivalent to 6 weeks and 4 days gestation age (Ultrasound estimated): 6 weeks and 5 days Date of delivery (Ultrasound estimated) : 11/19/2018 Heart rate: 136 bpm. Irma-gestational hemorrhage: None. Uterus measures 8.1 x 7.6 x 4.8 cm. No mass CERVIX: Long and closed. No cervical abnormality seen. RIGHT OVARY: Measures 3.4 x 3.7 x 1.4 cm. No mass. Normal flow. There is a 1.7 x 1.3 x 1.0 cm septated cyst. LEFT OVARY: Measures 3.1 x 3.1 x 2.3 cm. No mass. Normal flow. There is a 1.9 x 1.9 x 1.7 cm complicated cyst and 1.5 x 1.9 x 1.2 cm complicated cyst. FREE FLUID: None. OTHER FINDINGS: None. IMPRESSION: Single live intrauterine gestational sac with mean gestational age of 6 weeks and 5 days. The estimated date of delivery by ultrasound is 11/19/2018. Scribe Attestation: Documented by Chapo Maciel, acting as a scribe for Valeri Boyd MD. Provider Scribe Attestation: All medical record entries made by the Scribe were at my direction and personally dictated by me. I have reviewed the chart and agree that the record accurately reflects my personal performance of the history, physical exam, medical decision making, and the department course for this patient. I have also personally directed, reviewed, and agree with the discharge instructions and disposition. Disposition - Clinical Impression Clinical Impression: Abdominal pain in female, Threatened - Patient ED Disposition Is Patient to be Admitted: No Doctor Will See Patient In The: Office Counseled Patient/Family Regarding: Studies Performed, Diagnosis, Need For Followup - Disposition Referrals: [facility] [Outside] Disposition: Routine/Home Disposition Time: 13:00 Condition: GOOD Additional Instructions: JONATHAN CASTILLO, thank you for letting us take care of you today. Your provider was Valeri Boyd MD and you were treated for 7 WEEKS, ABD PAIN. The emergency medical care you received today was directed at your acute symptoms. If you were prescribed any medication, please fill it and take as directed. It may take several days for your symptoms to resolve. Return to the Emergency Department if your symptoms worsen, do not improve, or if you have any other problems. Please contact your doctor or call one of the physicians/clinics you have been referred to that are listed on the Patient Visit Information form that is included in your discharge packet. Bring any paperwork you were given at discharge with you along with any medications you are taking to your follow up visit. Our treatment cannot replace ongoing medical care by a primary care provider outside of the emergency department. Thank you for allowing the [facility] team to be part of your care today. If you had an X-Ray or CT scan: A Radiologist will review the ED reading if any change in treatment is needed we will contact you. If you had a blood, urine, or wound culture: It will take several days for the results, if any change in treatment is needed we will contact you. If you had an STI test: It will take 48 hours for the results. Please call after 1 week if you have not heard back. Instructions: Threatened Miscarriage (DC) Forms: [facility] ED School/Work Excuse
== END 2018-03-31 13:56 | disposition home or self-care (01) ==
LOC: H.ER 08:07
DX: O20.0 Threatened abortion (principal); Z3A.01 Less than 8 weeks gestation of pregnancy; O26.891 Other specified pregnancy related conditions, first trimester
CPT/HCPCS: 76817; 80053; 81025; 84702; 85025; 96361; 96374; 99284; J2405; J7030

== ENCOUNTER 2018-10-05 14:35 | Emergency (ER) | payer MEDICAID, OTHER ==
[2018-10-05 14:36] VITALS: BMI 29.9
[2018-10-05] MEDS ORDERED: Sodium Chloride 0.9% 1,000 ML IV STA (15:31)
--- NOTE | 2018-10-05 15:52 | ED PDOC ---
HPI: Headache Time Seen by Provider: 10/05/18 15:15 Chief Complaint (Nursing): Headache Chief Complaint (Provider): Headache History Per: Patient History/Exam Limitations: no limitations Onset/Duration Of Symptoms: Intermittent Episodes (x1 week) Current Symptoms Are (Timing): Intermittent Episodes Additional Complaint(s): 28 year old female, 15 weeks and L3C1Br2, presents to the ED for evaluation of intermittent left frontal headaches for the past week associated with photophobia, nausea and two episodes of vomiting, once last night and once this morning. Additionally notes that while she is still eating well, the headaches have been interrupting her sleep. Patient reports that she has had headaches like this in the past before becoming and would usually take Advil gels with good relief, but cannot take them anymore due to . She notes the Tylenol she takes instead, last dose 650mg around 1100 today, only provides minimal relief as she has been throwing it up. Otherwise, denies shortness of breath, chest pain, abdominal pain, vaginal bleeding / discharge, numbness, tingling, and taking any anti-nausea medications. PMD: Kalpesh Mclaughlin Past Medical History Reviewed: Historical Data, Nursing Documentation, Vital Signs Vital Signs: Last Vital Signs Temp 97.8 F 10/05/18 14:37 Pulse 82 10/05/18 14:37 Resp 16 10/05/18 14:37 BP 100/68 10/05/18 14:37 Pulse Ox 100 10/05/18 14:37 - Medical History PMH: No Chronic Diseases Denies: Chronic Kidney Disease - Surgical History Surgical History: No Surg Hx - Family History Family History: States: Diabetes (second degree relatives) - Social History Current smoker - smoking cessation education provided: No Alcohol: None Drugs: Denies - Home Medications Home Medications: Ambulatory Orders Medication Instructions Recorded Acetaminophen with Codeine 2 tab PO Q4H PRN #22 tab 07/09/14 [Tylenol with Codeine No. 3 300 mg-30 mg] Ibuprofen 600 mg PO Q8H PRN #60 tab 07/09/14 Ibuprofen [Motrin] 1 tab PO Q8 PRN #30 tab 11/01/15 Loratadine [Claritin] 1 tab PO DAILY #30 tab 11/01/15 Oseltamivir Phosphate [Tamiflu] 1 tab PO BID #10 capsule 11/01/15 Ibuprofen [Motrin] 600 mg PO TID PRN #30 tab 07/31/16 Nitrofurantoin Macrocrystals 100 mg PO BID #14 cap 07/31/16 [Macrobid] Cyclobenzaprine [Cyclobenzaprine 10 mg PO Q8H PRN #12 tab 12/09/16 HCl] Ibuprofen [Motrin Tab] 800 mg PO Q6H PRN #20 tab 12/09/16 Amoxicillin 500 mg PO TID 10 Days tablet 02/08/17 Dicyclomine [Bentyl] 20 mg PO TID PRN #15 tab 01/03/18 Famotidine [Pepcid] 20 mg PO DAILY PRN #10 tab 01/03/18 Ondansetron ODT [Zofran ODT] 4 mg PO TID #10 odt 01/03/18 Doxylamine/Pyridoxine HCl (B6) 2 tab PO HS #16 tablet. 10/05/18 [Efren Flores 10-10 mg Tablet] - Allergies Allergies/Adverse Reactions: Allergies Allergy/AdvReac Type Severity Reaction Status Date / Time No Known Allergies Allergy Verified 03/23/18 19:39 Review of Systems ROS Statement: Except As Marked, All Systems Reviewed And Found Negative Cardiovascular: Negative for: Chest Pain Respiratory: Negative for: Shortness of Breath Gastrointestinal: Positive for: Nausea, Vomiting (x2 episodes). Negative for: Abdominal Pain Genitourinary Female: Negative for: Vaginal Discharge, Vaginal Bleeding Neurological: Positive for: Headache (left frontal; with photophobia). Negative for: Numbness, Other (tingling) Psych: Positive for: Other (not sleeping well) Physical Exam - Reviewed Nursing Documentation Reviewed: Yes Vital Signs Reviewed: Yes - Physical Exam Appears: Positive for: No Acute Distress Head Exam: Positive for: ATRAUMATIC, NORMAL INSPECTION, NORMOCEPHALIC Skin: Positive for: Normal Color, Warm, Dry. Negative for: Rash Eye Exam: Positive for: Normal appearance, EOMI, PERRL, Other (photophobia) Neck: Positive for: Normal, Painless ROM, Supple Cardiovascular/Chest: Positive for: Regular Rate, Rhythm Respiratory: Positive for: Normal Breath Sounds. Negative for: Respiratory Distress Gastrointestinal/Abdominal: Positive for: Normal Exam, Soft. Negative for: Tenderness Extremity: Positive for: Normal ROM (all extremities). 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 Negative for: Motor/Sensory Deficits - Laboratory Results Result Diagrams: 10/05/18 15:38 10/05/18 15:38 - ECG O2 Sat by Pulse Oximetry: 100 (RA) Pulse Ox Interpretation: Normal Medical Decision Making Medical Decision Making: Time: 152 Initial Impression: headache Initial Plan: --CMP --CBC with differential --U-preg --Normal saline IV --Reglan 10mg IVP --Tylenol 650mg PO --Urinalysis --Reevaluation 1600 Upon reevaluation, patient reports that she feels improved, but still has a sight headache. Waiting on lab results for final disposition. 1630 Upon second reevaluation, patient reports that her headache is better and denies any dizziness. Juice was given for PO challenge which patient was able to tolerate without problem. Clinical findings reviewed and discussed with patient along with instructions to follow up with warhead maintenance specialist on 10/16. Return parameters disc ussed. Patient stable for discharge with scripts for Diclegis for nause/vomiting and Tylenol for headache. She verbalized agreement and understanding of all treatment and plan with all questions answered. Scribe Attestation: Documented by Diana Larsen, acting as a scribe for Mariella Osuna NP. Provider Scribe Attestation: All medical record entries made by the Scribe were at my direction and personally dictated by me. I have reviewed the chart and agree that the record accurately reflects my personal performance of the history, physical exam, medical decision making, and the department course for this patient. I have also personally directed, reviewed, and agree with the discharge instructions and disposition. Disposition - Clinical Impression Clinical Impression: Headache in - Patient ED Disposition Is Patient to be Admitted: No Counseled Patient/Family Regarding: Diagnosis - Disposition Referrals: Zainab Rodriguez MD [Medical Doctor] - Disposition: Routine/Home Disposition Time: 16:30 Condition: IMPROVED Additional Instructions: Follow-up with [facility]ST[facility] within 1 week Prescriptions: Doxylamine/Pyridoxine HCl (B6) [Efren Flores 10-10 mg Tablet] 2 tab PO HS #16 tablet. Instructions: Headache, Adult Forms: [facility] ED School/Work Excuse Print Language: BULGARIAN - POA Present On Arrival: None
[2018-10-05 16:14] LABS: BASO % 0.3 % (0.0-2.0); EOS # 0.1 K/uL (0.0-0.7); EOS % 1.9 % (0.0-4.0); HEMOGLOBIN 10.4 g/dL (12.0-16.0); LYMPH # 1.6 K/uL (1.0-4.3); LYMPH % 23.1 % (20.0-40.0); MEAN CELL VOLUME 93.5 fl (81.0-99.0); MEAN CORPUSCULAR HEMOGLOBIN 31.8 pg (27.0-31.0); MEAN PLATELET VOLUME 8.3 fl (7.2-11.7); MONO # 0.7 K/uL (0.0-0.8); MONO % 9.5 % (0.0-10.0); NEUT # 4.5 K/uL (1.8-7.0); NEUT % 65.2 % (50.0-75.0); RBC 3.27 Mil/uL (3.80-5.20); RED CELL DISTRIBUTION WIDTH 12.7 % (11.5-14.5); WHITE BLOOD COUNT 6.8 K/uL (4.8-10.8)
[2018-10-05 16:23] LABS: ALB/GLOB RATIO 1.1 (1.0-2.1); ALBUMIN 3.7 g/dL (3.5-5.0); ALT/SGPT 30 U/L (9-52); AST/SGOT 25 U/L (14-36); BLOOD UREA NITROGEN 12 mg/dl (7-17); CALCIUM 9.8 mg/dL (8.4-10.2); GFR NON-AFRICAN AMERICAN > 60
[2018-10-05 16:25] LABS: SQUAMOUS EPITHIAL 10 /hpf (0-5); URINE BACTERIA RARE (<OCC); URINE BILIRUBIN NEGATIVE (NEGATIVE); URINE BLOOD NEGATIVE (NEGATIVE); URINE CLARITY SLIGHTY-CLOUDY (Clear); URINE COLOR YELLOW (YELLOW); URINE GLUCOSE (UA) NEG (NEGATIVE); URINE LEUKOCYTE ESTERASE SMALL Leu/uL (Negative); URINE PROTEIN 30 mg/dL (NEGATIVE)
[2018-10-05 16:45] VITALS: BP 104/60; PULSE 77; RESP 19; TEMP 98
[2018-10-05 16:47] VITALS: O2SAT 100
== END 2018-10-05 16:47 | disposition home or self-care (01) ==
LOC: H.ER 14:35
DX: R51 Headache (principal); O26.892 Other specified pregnancy related conditions, second trimester; Z3A.15 15 weeks gestation of pregnancy; O21.9 Vomiting of pregnancy, unspecified
CPT/HCPCS: 80053; 81003; 85025; 96374; 99285; J2765; J7030